=== PATIENT | male | born 1955 | race Caucasian/White ===

== ENCOUNTER → 2019-08-10 | Outpatient (CLI) | payer MEDICARE, OTHER ==
--- NOTE | 2019-08-10 11:59 | Diagnostic Imaging Report ---
INDICATION: 45 pack-year history of smoking. COMPARISON: None. TECHNIQUE: Routine noncontrast CT of the chest was performed for screening purposes per department protocol. Auto Exposure Controls were utilized during the CT exam to meet ALARA standards for radiation dose reduction. FINDINGS: Evaluation of the lung hayes demonstrates a 1.1 x 0.7 cm ill-defined spiculated appearing density within the lateral margins of the right upper lobe (image 86, series 2). A few other scattered benign calcified granuloma are also noted bilaterally. Additionally, there is background moderate emphysematous disease. There is no focal consolidation, large effusion, nor pneumothorax on either side. Cardiomediastinal structures show normal heart size. Ascending thoracic aorta shows borderline aneurysmal dilatation of 4.1 cm in diameter. Prominent AP window lymph node is also identified and measures 2 x 1.4 cm. A 1.5 x 2.1 cm lymph node is also seen anterior to the left main pulmonary artery. Note is made of mild scattered calcified aortic atherosclerosis. No abnormal axillary lymph nodes are seen. Osseous structures show no acute abnormalities. Age-related degenerative changes of the thoracic spine are noted. Included portions of the upper abdomen are unremarkable. IMPRESSION: 1. Single ill-defined spiculated nodular density of the right upper lobe. Follow-up with repeat CT chest in 3 months is recommended. 2. Background moderate emphysematous disease. 3. Enlarged mediastinal lymph nodes of uncertain significance or etiology. Again, short interval follow-up is recommended. 4. Borderline aneurysmal dilatation of the ascending thoracic aorta. Lung Rads category: 4A-S Dictated by: Dictated on workstation # [id number]
== END ==
LOC: RAD 09:17
PROVIDERS: ATTEND Family Medicine
DX: Z12.2 Encounter for screening for malignant neoplasm of respiratory organs (principal); J98.4 Other disorders of lung; J43.9 Emphysema, unspecified; I71.2 Thoracic aortic aneurysm, without rupture; R59.0 Localized enlarged lymph nodes; Z87.891 Personal history of nicotine dependence

== ENCOUNTER → 2019-12-15 | Outpatient (CLI) | payer MEDICARE, OTHER ==
--- NOTE | 2019-12-15 09:11 | Diagnostic Imaging Report ---
PROCEDURE: CT chest without contrast. TECHNIQUE: Multiple contiguous axial images were obtained through the chest without the use of intravenous contrast. Auto Exposure Controls were utilized during the CT exam to meet ALARA standards for radiation dose reduction. INDICATION: Lung nodules. FINDINGS: It should be noted that this exam was performed using a different technique from the prior study of 08/10/2019. Specifically, on this exam, the slice thicknesses are 3.75 mm as opposed to 1.25 mm on the prior study. Consequently, the resolution of this exam is not as great as on the prior study. The previous CT low-dose lung cancer screening exam performed on 08/10/2019 did note an ill-defined spiculated nodular density in the right upper lobe measuring 1.1 x 0.7 cm. On this study, that finding does not appear to have changed significantly in size or appearance. No other parenchymal lung mass is identified that would suggest malignancy. The emphysematous changes involving both lungs seen previously are again evident and no different. The heart is stable in size. Coronary artery calcifications are again noted. The previous study did show aneurysmal dilatation of the ascending aorta with the aorta measuring approximately 4.1 cm. On this study, the aorta measures 4.0 x 4.2 cm in maximum transverse and AP diameters. The previous study also noted a few prominent nodes in the aorticopulmonary window. These measured 2.0 x 1.4 cm and 1.5 x 2.1 cm in size. On this exam, those nodes now measure 1.4 x 2.6 cm and 1.3 x 2.1 cm. These nodes are borderline enlarged but still nonspecific in appearance. The thyroid gland is generally unremarkable. The sections through the upper abdomen do show 1.3 x 1.7 cm low-density nodules associated with the left adrenal gland. This finding seems similar to the prior exam. The right adrenal gland is generally unremarkable. There is no other abnormality of the upper abdomen identified. The bone windows show no sign of a fracture or of a destructive lesion. There does appear to be block vertebra formation at T11-T12. This is a developmental variant. IMPRESSION: 1. The small ill-defined spiculated nodular density in the right upper lobe seen on the prior study is again evident and does not appear to have changed significantly. I would recommend that a six-month low-dose lung cancer screening exam be performed for continued evaluation. 2. There is no other parenchymal abnormality identified. 3. There are emphysematous changes involving both lungs but there is no sign of an acute cardiopulmonary abnormality. 4. The aorticopulmonary window nodes seen previously are again evident and do measure slightly larger. These nodes remain nonspecific in appearance, however. 5. There is a small benign-appearing nodule associated with the left adrenal gland. This finding could also be further evaluated on the follow-up CT study. Dictated by: Dictated on workstation # [id number]
== END ==
LOC: RAD 07:43
PROVIDERS: ATTEND Nurse Practitioner Family
DX: R91.1 Solitary pulmonary nodule (principal); J43.9 Emphysema, unspecified; E27.9 Disorder of adrenal gland, unspecified
CPT/HCPCS: 71250

== ENCOUNTER → 2020-04-25 | Outpatient (CLI) | payer MEDICARE, OTHER ==
--- NOTE | 2020-04-25 10:46 | Diagnostic Imaging Report ---
CT CHEST WO TECHNIQUE: Multiple contiguous axial images were obtained through the chest without the use of intravenous contrast. All CT scans use one or more of the following dose optimizing techniques: automated exposure control, MA and/or KvP adjustment based on a patient size and exam type, or iterative reconstruction. INDICATION: Follow-up pulmonary nodule and mediastinal lymphadenopathy. COMPARISON: CT chest of 12/15/2019 and 08/10/2019 FINDINGS: Lungs and airway: No endoluminal nodule within the trachea. The right upper lobe linear nodule with spiculated margins is unchanged and due to scar associated with emphysema. No new pulmonary mass or nodule has developed. Severe emphysema is again noted. Pleura: No pleural effusion or pneumothorax. Heart and mediastinum: Numerous mildly enlarged mediastinal lymph nodes persist. The largest is again at the level the AP window measuring 1.5 cm in transverse dimension (previously 1.3 cm). Enlarged left hilar lymph nodes are also likely present but suboptimally evaluated without contrast. No juxtaphrenic lymphadenopathy. Trace pericardial fluid is unchanged. Heart remains normal in size. Borderline ectasia of the ascending aorta measuring 4.3 cm is unchanged as well. Upper abdomen: Low-attenuation left adrenal nodule stable. No lymphadenopathy upper abdomen is appreciated, although assessment is limited by noncontrast imaging. Scattered hypodensities throughout the liver stable and too small to characterize but likely cysts. Musculoskeletal: No lytic or blastic skeletal lesions. IMPRESSION: 1. Mediastinal lymphadenopathy is stable to mildly increased in size since prior exam. Given that this is potentially increase in size since initial exam of 08/10/2019, PET CT may be warranted to evaluate for metabolic activity. If PET/CT is not performed, continued surveillance with CT chest with IV contrast in 3-6 months is advised. 2. There are no pulmonary nodules that would suggest clinically active lung cancer. Dictated by: Dictated on workstation # [id number]
== END ==
LOC: RAD 09:11
PROVIDERS: ATTEND Family Medicine
DX: R91.1 Solitary pulmonary nodule (principal); R59.0 Localized enlarged lymph nodes
CPT/HCPCS: 71250

== ENCOUNTER → 2020-05-21 | Outpatient (CLI) | payer MEDICARE, OTHER ==
--- NOTE | 2020-05-21 14:19 | Diagnostic Imaging Report ---
EXAMINATION: PET/CT. INDICATION: Lung nodule, mediastinal adenopathy. TECHNIQUE: After intravenous administration of 14.77 mCi of F18-FDG injected into the left forearm, a series of overlapping emission and transmission PET images was obtained. In the coronal, transaxial, and sagittal planes, the area imaged extended from the skull base through the upper thighs. Height: 6 feet. Weight: 135. Blood glucose: 113. COMPARISON: There are no prior PET/CT examinations available for comparison. The CT chest exam performed on 04/25/2020 noted mediastinal adenopathy. The adenopathy did seem somewhat more prominent than noted on the prior exams of 12/15/2019 and 08/10/2019. FINDINGS: On this exam, the nodes involving the mediastinum and lavonne are hypermetabolic. The node in the right hilum measures 9.2 in maximum SUV value while the node in the aorticopulmonary window has a maximum SUV of 6.2. There are also a number of smaller slightly hypermetabolic nodes in both supraclavicular regions. These nodes have SUV values ranging from 3.3 to 6.3. The hypermetabolic activity associated with these nodes does suggest that they are neoplastic in nature. The small spiculated nodule in the right upper lobe and the small nodule associated with the left adrenal gland seen on the previous study are not hypermetabolic. There is no other hypermetabolic activity to suggest the presence of malignancy. Physiologic activity is seen in the brain, heart, kidneys, bowel, and bladder. The CT images do show that, in the interval since the previous CT chest exam, patchy alveolar/interstitial infiltrate has developed in the left suprahilar region. This does suggest mild pneumonia/atelectasis. There may also be some involvement of the right mid lung by pneumonia/atelectasis. The aneurysmal dilatation of the ascending aorta seen on the previous exam is again evident and no different. The heart is stable in size. 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 This aneurysm measures approximately 3.0 x 4.6 cm in maximum transverse and AP diameters. If further evaluation of this finding is desired, then a followup CTA abdomen/pelvis exam with intravenous contrast would be recommended. There is also a small amount of nonspecific free fluid in the pelvis. Images of the brain show no evidence for an acute abnormality or neoplastic disease. IMPRESSION: 1. There are hypermetabolic nodes involving both lavonne and the mediastinum as well as both supraclavicular regions. These nodes should be considered neoplastic until proven otherwise. Either bronchoscopy or mediastinoscopy should be considered for further evaluation. 2. There is no other hypermetabolic activity to suggest the presence of malignancy. 3. The CT images do indicate that there is mild pneumonia/atelectasis in the left suprahilar region and perhaps a small amount of pneumonia/atelectasis in the right midlung. 4. The aneurysmal dilatation of the ascending aorta seen previously appears stable. 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 Additional considerations as above. 5. There is a small amount of nonspecific free fluid in the pelvis. Dictated by: Dictated on workstation # [id number]
== END ==
LOC: RAD 10:45
PROVIDERS: ATTEND Family Medicine
DX: I71.4 Abdominal aortic aneurysm, without rupture (principal); I71.2 Thoracic aortic aneurysm, without rupture; R59.1 Generalized enlarged lymph nodes; R91.1 Solitary pulmonary nodule
CPT/HCPCS: 78815; A9552

== ENCOUNTER 2020-08-26 02:15 | Emergency (ER) | payer MEDICARE, OTHER ==
[~2020-08-26] VITALS: Ht 182.9 cm; Wt 65.8 kg
--- NOTE | 2020-08-26 02:30 | ED General ---
General Stated Complaint: SEIZURE Source of Information: Patient, EMS, EMS Notes Reviewed, RN/MD, RN Notes Reviewed History of Present Illness Date Seen by Provider: Aug 26, 2020 Time Seen by Provider: 02:20 Initial Comments This patient is a 65-year-old male presents to the emerge department via EMS after being found by having a seizure while asleep. Patient has no history of seizures. Patient does have a history of cancer but is unable to verbalize what type of cancer he has. Family has not arrived to the emergency department. Patient is awake and alert and does state his age and date of correctly. The patient still states he is a little confused. We'll do medical evaluation treatment is needed Timing/Duration: 1/2 Hour Severity: Moderate Associated Systoms: Seizure Allergies and Home Medications Allergies Coded Allergies: No Known Drug Allergies (Unverified , 08/26/20) Patient Home Medication List Home Medication List Reviewed: Yes Review of Systems Review of Systems Constitutional: No no symptoms reported; see HPI; No chills, No diaphoresis, No dizziness, No fever, No malaise, No weakness, No weight gain, No weight loss, No other EENTM: No see HPI, No no symptoms reported, No ear discharge, No hearing loss, No ear pain, No blurred vision, No double vision, No eye pain, No tearing, No vision loss, No dental problems, No hoarseness, No mouth pain, No mouth swelling, No epistaxis, No nose congestion, No nose pain, No throat pain, No throat swelling, No other Respiratory: No no symptoms reported, No see HPI, No cough, No dyspnea on exertion, No hemoptysis, No orthopnea, No phlegm, No short of breath, No stridor, No wheezing, No other Cardiovascular: No no symptoms reported, No see HPI, No chest pain, No edema, No Hx of Intervention, No palpitations, No syncope, No vascular heart diseas, No other Gastrointestinal: No RUQ, No LUQ, No RLQ, No LLQ, No no symptoms reported, No see HPI, No abdominal pain, No constipation, No diarrhea, No dysphagia, No hematemesis, No heartburn, No jaundice, No loss of appetite, No melena, No nausea, No vomiting, No other Genitourinary: No no symptoms reported, No see HPI, No decreased output, No discharge, No dysuria, No frequency, No hematuria, No hesitancy, No incontinen ce, No nocturia, No pain, No other Musculoskeletal: No no symptoms reported, No see HPI, No back pain, No gout, No joint pain, No joint swelling, No muscle pain, No muscle stiffness, No muscle cramps, No muscle twitching, No muscle weakness, No neck pain, No other Skin: No no symptoms reported, No see HPI, No change in color, No change in hair/nails, No dryness, No hx of skin cancer, No lesions, No lumps, No pruritus, No rash, No other Psychiatric/Neurological: Denies No Symptoms Reported; See HPI; Denies Anxiety, Denies Depressed, Denies Emotional Problems, Denies Headache, Denies Numbness, Denies Paresthesia, Denies Pre-Existing Deficit; Seizure; Denies Tingling, Denies Tremors, Denies Weakness, Denies Other All Other Systems Reviewed Negative Unless Noted: Yes Past [id number]-[id number] Hx Patient Social History Recent Foreign Travel: No Contact w/Someone Who Travel: No Physical Exam Vital Signs Vital Signs - First Documented 08/26/20 02:53 Temp 36.1 Pulse 121 Resp 16 B/P (MAP) 156/71 (99) Pulse Ox 93 O2 Delivery Room Air Capillary Refill : Height, Weight, BMI Height: '" Weight: lbs. oz. kg; BMI Method: General Appearance: No Apparent Distress, WD/WN HEENT: PERRL/EOMI, TMs Normal, Normal ENT Inspection, Pharynx Normal Neck: Full Range of Motion, Normal Inspection, Non Tender, Supple, Carotid Bruit Respiratory: Chest Non Tender, Lungs Clear, Normal Breath Sounds, No Accessory Muscle Use, No Respiratory Distress Cardiovascular: Regular Rate, Rhythm, No Edema, No Gallop, No JVD, No Murmur, Normal Peripheral Pulses Gastrointestinal: Normal Bowel Sounds, No Organomegaly, No Pulsatile Mass, Non Tender, Soft Extremity: Normal Capillary Refill, Normal Inspection, Normal Range of Motion, Non Tender, No Calf Tenderness, No Pedal Edema Neurologic/Psychiatric: Alert, Oriented x3 (appears be alert however has some confusion still present possibly a little postictal), No Motor/Sensory Deficits, Normal Mood/Affect Skin: Normal Color, Warm/Dry Progress/Results/Core Measures Suspected Sepsis SIRS Temperature: Pulse: Respiratory Rate: Laboratory Tests 08/26/20 02:30: White Blood Count 2.3L Blood Pressure / Mean: Laboratory Tests 08/26/20 02:30: Creatinine 0.76, INR Comment 1.0, Platelet Count 206, Total Bilirubin 0.5 Results/Orders Lab Results Laboratory Tests Test 08/26/20 02:30 08/26/20 02:45 Range/Units White Blood Count 2.3 L 4.3-11.0 10^3/uL Red Blood Count 3.87 L 4.35-5.85 10^6/uL Hemoglobin 11.7 L 13.3-17.7 G/DL Hematocrit 34 L 40-54 % Mean Corpuscular Volume 89 80-99 FL Mean Corpuscular Hemoglobin 30 25-34 PG Mean Corpuscular Hemoglobin Concent 34 32-36 G/DL Red Cell Distribution Width 14.4 10.0-14.5 % Platelet Count 206 130-400 10^3/uL Mean Platelet Volume 8.9 7.4-10.4 FL Immature Granulocyte % (Auto) 0 % Neutrophils (%) (Auto) 45 42-75 % Lymphocytes (%) (Auto) 34 12-44 % Monocytes (%) (Auto) 18 H 0-12 % Eosinophils (%) (Auto) 3 0-10 % Basophils (%) (Auto) 0 0-10 % Neutrophils # (Auto) 1.0 L 1.8-7.8 X 10^3 Lymphocytes # (Auto) 0.8 L 1.0-4.0 X 10^3 Monocytes # (Auto) 0.4 0.0-1.0 X 10^3 Eosinophils # (Auto) 0.1 0.0-0.3 10^3/uL Basophils # (Auto) 0.0 0.0-0.1 10^3/uL Immature Granulocyte # (Auto) 0.0 0.0-0.1 10^3/uL Neutrophils % (Manual) 49 % Lymphocytes % (Manual) 32 % Monocytes % (Manual) 18 % Eosinophils % (Manual) 1 % Prothrombin Time 13.8 12.2-14.7 SEC INR Comment 1.0 0.8-1.4 Sodium Level 136 135-145 MMOL/L Potassium Level 4.3 3.6-5.0 MMOL/L Chloride Level 101 98-107 MMOL/L Carbon Dioxide Level 21 21-32 MMOL/L Anion Gap 14 5-14 MMOL/L Blood Urea Nitrogen 20 H 7-18 MG/DL Creatinine 0.76 0.60-1.30 MG/DL Estimat Glomerular Filtration Rate > 60 BUN/Creatinine Ratio 26 Glucose Level 163 H 70-105 MG/DL Calcium Level 9.0 8.5-10.1 MG/DL Corrected Calcium 9.0 8.5-10.1 MG/DL Total Bilirubin 0.5 0.1-1.0 MG/DL Aspartate Amino Transf (AST/SGOT) 22 5-34 U/L Alanine Aminotransferase (ALT/SGPT) 24 0-55 U/L Alkaline Phosphatase 68 40-136 U/L Troponin I < 0.30 <0.30 NG/ML Pro-B-Type Natriuretic Peptide 152.9 H <75.0 PG/ML Total Protein 6.6 6.4-8.2 GM/DL Albumin 4.0 3.2-4.5 GM/DL Urine Color STRAW Urine Clarity CLEAR Urine pH 7.0 5-9 Urine Specific [place] 1.020 1.016-1.022 Urine Protein NEGATIVE NEGATIVE Urine Glucose (UA) TRACE H NEGATIVE Urine Ketones NEGATIVE NEGATIVE Urine Nitrite NEGATIVE NEGATIVE Urine Bilirubin NEGATIVE NEGATIVE Urine Urobilinogen 0.2 < = 1.0 MG/DL Urine Leukocyte Esterase NEGATIVE NEGATIVE Urine RBC (Auto) NEGATIVE NEGATIVE Urine RBC NONE /HPF Urine WBC RARE /HPF Urine Squamous Epithelial Cells RARE /HPF Urine Crystals NONE /LPF Urine Bacteria NEGATIVE /HPF Urine Casts NONE /LPF Urine Mucus NEGATIVE /LPF Urine Culture Indicated NO Urine Opiates Screen NEGATIVE NEGATIVE Urine Oxycodone Screen NEGATIVE NEGATIVE Urine Methadone Screen NEGATIVE NEGATIVE Urine Propoxyphene Screen NEGATIVE NEGATIVE Urine Barbiturates Screen NEGATIVE NEGATIVE Ur Tricyclic Antidepressants Screen NEGATIVE NEGATIVE Urine Phencyclidine Screen NEGATIVE NEGATIVE Urine Amphetamines Screen NEGATIVE NEGATIVE Urine Methamphetamines Screen NEGATIVE NEGATIVE Urine Benzodiazepines Screen POSITIVE H NEGATIVE Urine Cocaine Screen NEGATIVE NEGATIVE Urine Cannabinoids Screen NEGATIVE NEGATIVE My Orders Orders - PARISH ARMENDARIZ MD Ed Iv/Invasive Line Start (08/26/20 02:26) Cbc With Automated Diff (08/26/20 02:26) Comprehensive Metabolic Panel (08/26/20 02:26) Drug Screen Stat (Urine) (08/26/20 02:26) Urinalysis (08/26/20 02:26) Troponin I Fs (08/26/20 02:26) Protime With Inr (08/26/20 02:26) Probnp Fs (08/26/20 02:26) Chest 1 View Ap/Pa Only (08/26/20 02:26) Ekg Tracing (08/26/20 02:26) Ct Head Wo (08/26/20 02:26) Manual Differential (08/26/20 02:30) Ns Iv 500 Ml (Sodium Chloride 0.9%) (08/26/20 02:46) Vital Signs/I&O 08/26/20 02:53 Temp 36.1 Pulse 121 Resp 16 B/P (MAP) 156/71 (99) Pulse Ox 93 O2 Delivery Room Air Capillary Refill : Progress Note : Time: 04:24 Progress Note This patient is at his baseline after arrival. Negative evaluation in the emergency department thus far. I discussed at length with Dr. Vlad palomino and Dr. Callie Welch at [facility] they recommend patient be transferred to their facility. For further evaluation by MRI. Discussed with family and they state understanding patient be transferred symptoms transport is available ECG Initial ECG Impression Date: Aug 26, 2020 Initial ECG Impression Time: 02:29 Initial ECG Rate: 107 Initial ECG Rhythm: S.Tach, PAC Initial ECG Impression: Nonspecific Changes Comment Sinus tachycardia with a heart rate of 107 PACs present left axis deviation nonspecific EKG changes. Departure Impression Primary Impression: New onset seizure Additional Impression: Metastatic primary lung cancer Disposition: XFER SHT-TRM HOSP Condition: Improved Transfer Transfer Reason: Exceeds level of care Time Spoke to Accepting Phy: 04:[address] Hernandez met and Dr. Means accepted this patient for transfer Transfer Time: 04:25 Transfer Facility: [facility] Method of Transfer: EMS Departure-Patient Inst. Referrals: CASS SHETTY MD (PCP/Family) Primary Care Physician PARISH ARMENDARIZ MD Aug 26, 2020 02:30
[2020-08-26 02:41] LABS: HEMATOCRIT 34 % (40-54); HEMOGLOBIN 11.7 G/DL (13.3-17.7); LYMPHOCYTES % (AUTO) 34 % (12-44); MEAN CORPUSCULAR HEMOGLOBIN 30 PG (25-34); MEAN CORPUSCULAR HGB CONC 34 G/DL (32-36); MEAN CORPUSCULAR VOLUME 89 FL (80-99); MEAN PLATELET VOLUME 8.9 FL (7.4-10.4); MONOCYTES % (AUTO) 18 % (0-12); NEUTROPHILS % (AUTO) 45 % (42-75); PLATELET COUNT 206 10^3/uL (130-400); WHITE BLOOD COUNT 2.3 10^3/uL (4.3-11.0)
[2020-08-26 02:42] LABS: BASOPHILS % (AUTO) 0 % (0-10); EOSINOPHILS # (AUTO) 0.1 10^3/uL (0.0-0.3); EOSINOPHILS % (AUTO) 3 % (0-10); LYMPHOCYTES # (AUTO) 0.8 X 10^3 (1.0-4.0); MONOCYTES # (AUTO) 0.4 X 10^3 (0.0-1.0)
[2020-08-26] MEDS ORDERED: NS IV 500 ML 500 ML IV STA (02:46)
[2020-08-26 02:52] LABS: BACTERIA,URINE NEGATIVE /HPF; BILIRUBIN,URINE NEGATIVE (NEGATIVE); CLARITY,URINE CLEAR; COLOR,URINE STRAW; GLUCOSE, URINE (UA) TRACE (NEGATIVE); KETONES,URINE NEGATIVE (NEGATIVE); LEUKOCYTE ESTERASE ,URINE NEGATIVE (NEGATIVE); NITRITE,URINE NEGATIVE (NEGATIVE); PROTEIN,URINE NEGATIVE (NEGATIVE); SQUAMOUS EPITHELIAL CELL,UR RARE /HPF; WBC,URINE RARE /HPF
[2020-08-26 02:53] LABS: PROTHROMBIN TIME PATIENT 13.8 SEC (12.2-14.7)
[2020-08-26 03:00] LABS: ALANINE AMINOTRANSFERASE 24 U/L (0-55); ALKALINE PHOSPHATASE 68 U/L (40-136); BILIRUBIN,TOTAL 0.5 MG/DL (0.1-1.0); BUN/CREATININE RATIO 26; CARBON DIOXIDE 21 MMOL/L (21-32); CHLORIDE 101 MMOL/L (98-107); CREATININE SERUM 0.76 MG/DL (0.60-1.30); GFR ESTIMATED > 60; GLUCOSE 163 MG/DL (70-105); POTASSIUM 4.3 MMOL/L (3.6-5.0); SODIUM 136 MMOL/L (135-145); TOTAL PROTEIN 6.6 GM/DL (6.4-8.2)
[2020-08-26 03:00] LABS: AMPHETAMINE SCREEN, URINE NEGATIVE (NEGATIVE); BARBITURATE SCREEN URINE NEGATIVE (NEGATIVE); BENZODIAZEPINES SCREEN URINE POSITIVE (NEGATIVE); CANNABINOID SCREEN, URINE NEGATIVE (NEGATIVE); COCAINE SCREEN URINE NEGATIVE (NEGATIVE); METHADONE STAT NEGATIVE (NEGATIVE); METHAMPHETAMINE SCREEN URINE S NEGATIVE (NEGATIVE); OPIATE SCREEN URINE NEGATIVE (NEGATIVE); OXYCODONE STAT NEGATIVE (NEGATIVE); PROPOXYPHENE STAT NEGATIVE (NEGATIVE); TRICYCLIC ANTIDEPRESSANTS SCRE NEGATIVE (NEGATIVE)
[2020-08-26 03:01] LABS: EOSINOPHILS % (MANUAL) 1 %; LYMPHOCYTES % (MANUAL) 32 %; MONOCYTES % (MANUAL) 18 %; NEUTROPHILS % (MANUAL) 49 %
[2020-08-26] MEDS ORDERED: ONDA8TAB15 (03:08)
[2020-08-26] MEDS ORDERED: VENL75CA93 (03:08)
[2020-08-26] MEDS ORDERED: DEXA4TAB (03:08)
[2020-08-26] MEDS ORDERED: PROC10TA10 (03:08)
[2020-08-26] MEDS ORDERED: ALPR.25T PO (03:13)
[2020-08-26] MEDS ORDERED: LOPE-175 PO (03:15)
--- NOTE | 2020-08-26 05:15 | NUR ---
Spoke with ems about pt transfer to [facility].
--- NOTE | 2020-08-26 06:12 | NUR ---
pt resting with no complaints
--- NOTE | 2020-08-26 07:22 | Diagnostic Imaging Report ---
PROCEDURE: CT head without contrast. TECHNIQUE: Multiple contiguous axial images were obtained through the brain without the use of intravenous contrast. Auto Exposure Controls were utilized during the CT exam to meet ALARA standards for radiation dose reduction. DATE: August 26, 2020. COMPARISON: None. INDICATION: 65-year-old male, seizure. FINDINGS: There are areas of low-attenuation in the periventricular and subcortical white matter which most likely relate to mild changes of chronic small vessel ischemic disease. The ventricles and cerebral spinal fluid spaces are of normal size and configuration for the patient's age. There is no mass effect or midline shift. There is no acute intracranial hemorrhage. There is no abnormal extra-axial fluid collection. The visualized portions of the paranasal sinuses, mastoid air cells and middle ears are well aerated. IMPRESSION: 1. No identified acute intracranial abnormality. 2. Mild probable changes of chronic small vessel ischemic disease. Dictated by: Dictated on workstation # [id number]
--- NOTE | 2020-08-26 07:22 | Diagnostic Imaging Report ---
EXAMINATION: Chest radiograph, portable AP view. DATE: 08/26/2020 3:14 AM hours. INDICATION: 65-year-old male, seizure. COMPARISON: CT chest April 25, 2020. FINDINGS: There is a right-sided port catheter. Heart size is within normal limits. There is no identified pneumothorax. There is no large pleural effusion. There are coarse interstitial appearing opacities which likely relate to chronic lung changes and emphysema. There is no otherwise noted focal airspace consolidation. IMPRESSION: 1. Findings of emphysema without identified acute cardiopulmonary abnormality. Dictated by: Dictated on workstation # [id number]
[2020-08-26 07:25] VITALS: BP 139/75
== END 2020-08-26 07:25 | disposition short-term general hospital (02) ==
LOC: EDUNIT# 02:15 → ER FS 02:23
DX: R56.9 Unspecified convulsions (principal); C34.90 Malignant neoplasm of unspecified part of unspecified bronchus or lung
CPT/HCPCS: 36415; 70450; 71045; 80053; 80306; 81000; 83880; 84484; 85007; 85027; 85610; 93005